=== PATIENT | female | born 1960 | race Caucasian/White ===

== ENCOUNTER → 2017-07-21 | Outpatient (CLI) | payer OTHER | LOC: MHCPAIN 13:20 | DX: G89.29 Other chronic pain (principal); M47.27 Other spondylosis with radiculopathy, lumbosacral region; M53.3 Sacrococcygeal disorders, not elsewhere classified; M96.1 Postlaminectomy syndrome, not elsewhere classified | CPT/HCPCS: G0463 ==

== ENCOUNTER → 2017-08-26 | Outpatient (CLI) | payer OTHER | LOC: MHCPAIN 15:15 | DX: G89.29 Other chronic pain (principal); M47.27 Other spondylosis with radiculopathy, lumbosacral region; M53.3 Sacrococcygeal disorders, not elsewhere classified; M96.1 Postlaminectomy syndrome, not elsewhere classified | CPT/HCPCS: G0463 ==

== ENCOUNTER → 2017-09-29 | Outpatient (CLI) | payer OTHER | LOC: MHCPAIN 14:25 | DX: G89.29 Other chronic pain (principal); M47.817 Spondylosis without myelopathy or radiculopathy, lumbosacral region; M54.16 Radiculopathy, lumbar region; M53.3 Sacrococcygeal disorders, not elsewhere classified; M96.1 Postlaminectomy syndrome, not elsewhere classified | CPT/HCPCS: G0463 ==

== ENCOUNTER → 2017-10-27 | Outpatient (CLI) | payer OTHER | LOC: MHCPAIN 15:34 | DX: G89.29 Other chronic pain (principal); M47.27 Other spondylosis with radiculopathy, lumbosacral region; M53.3 Sacrococcygeal disorders, not elsewhere classified; M96.1 Postlaminectomy syndrome, not elsewhere classified | CPT/HCPCS: G0463 ==

== ENCOUNTER → 2017-12-31 | Outpatient (CLI) | payer OTHER | LOC: MHCPAIN 15:26 | DX: G89.29 Other chronic pain (principal); M47.817 Spondylosis without myelopathy or radiculopathy, lumbosacral region; M54.16 Radiculopathy, lumbar region; M53.3 Sacrococcygeal disorders, not elsewhere classified; M96.1 Postlaminectomy syndrome, not elsewhere classified | CPT/HCPCS: G0463 ==

== ENCOUNTER → 2018-03-27 | Outpatient (CLI) | payer OTHER | LOC: COL.RAD 12:54 | DX: M51.37 Other intervertebral disc degeneration, lumbosacral region (principal); M96.1 Postlaminectomy syndrome, not elsewhere classified; Z98.1 Arthrodesis status; Z96.89 Presence of other specified functional implants ==

== ENCOUNTER → 2018-03-27 | Outpatient (CLI) | payer OTHER | LOC: MHCPAIN 12:04 | DX: G89.29 Other chronic pain (principal); M47.817 Spondylosis without myelopathy or radiculopathy, lumbosacral region; M54.16 Radiculopathy, lumbar region; M53.3 Sacrococcygeal disorders, not elsewhere classified; M96.1 Postlaminectomy syndrome, not elsewhere classified | CPT/HCPCS: G0463 ==

== ENCOUNTER → 2018-05-27 | Outpatient (CLI) | payer OTHER ==
[~2018-05-27] MED LIST: ASPIRIN E.C. 8181 MG PO; BIOTIN5000 MCG PO; BUSPAR10 MG PO; CALCIUM 600/VIT1 CAP PO; CYMBALTA 30MG30 MG PO; ELOCON 30 ML30 ML TOP; MAGNESIUM250 M1 PO; MELAT3MGTAB PO; MULTIPLE VITAMI1 CAP PO; OPANA5 MG PO; PLAQUENIL 200M200 MG PO; REQUIP2 MG PO; VITAMIN D32000 I1 PO; VOLTAREN GEL 1%1 TU TP; ZESTRIL 5MG5 MG PO; ZOLOFT 100MG100 MG PO; ZOVIRAX800 MG PO; cbd oil PO
== END ==
LOC: MHCPAIN 14:08
DX: G89.29 Other chronic pain (principal); M47.817 Spondylosis without myelopathy or radiculopathy, lumbosacral region; M54.16 Radiculopathy, lumbar region; M53.3 Sacrococcygeal disorders, not elsewhere classified; M96.1 Postlaminectomy syndrome, not elsewhere classified
CPT/HCPCS: G0463

== ENCOUNTER 2018-06-03 12:13 | Outpatient (CLI) | payer OTHER ==
[~2018-06-03] VITALS: Ht 162.6 cm; Wt 103.3 kg
[2018-06-03] VITALS (7 sets, daily range): BP systolic 110–137; BP diastolic 67–92; PULSE 76–88
[2018-06-03] MEDS ORDERED: DOXYCYCLINE 10100 MG PO (12:34)
== END 2018-06-03 15:40 | disposition home or self-care (01) ==
LOC: COL.RAD 12:13
DX: M96.1 Postlaminectomy syndrome, not elsewhere classified (principal); M51.16 Intervertebral disc disorders with radiculopathy, lumbar region; M48.061 Spinal stenosis, lumbar region without neurogenic claudication; M46.97 Unspecified inflammatory spondylopathy, lumbosacral region; Z98.1 Arthrodesis status
CPT/HCPCS: Q9965

== ENCOUNTER 2018-07-13 15:30 | Outpatient (RCR) | payer OTHER ==
[~2018-07-13 15:30] MED LIST changes: +DOXYCYCLINE 10100 MG PO
== END 2018-09-17 | disposition home or self-care (01) ==
LOC: WSPT
DX: M54.42 Lumbago with sciatica, left side (principal); M54.9 Dorsalgia, unspecified; M54.2 Cervicalgia; Z96.652 Presence of left artificial knee joint; Z98.1 Arthrodesis status

== ENCOUNTER → 2018-08-25 | Outpatient (CLI) | payer OTHER | LOC: MHCPAIN 14:58 | DX: G89.29 Other chronic pain (principal); M47.817 Spondylosis without myelopathy or radiculopathy, lumbosacral region; M54.16 Radiculopathy, lumbar region; M53.3 Sacrococcygeal disorders, not elsewhere classified; M96.1 Postlaminectomy syndrome, not elsewhere classified; M47.814 Spondylosis without myelopathy or radiculopathy, thoracic region | CPT/HCPCS: G0463 ==

== ENCOUNTER → 2018-11-24 | Outpatient (CLI) | payer OTHER | LOC: MHCPAIN 15:39 | DX: G89.29 Other chronic pain (principal); M47.817 Spondylosis without myelopathy or radiculopathy, lumbosacral region; M54.16 Radiculopathy, lumbar region; M53.3 Sacrococcygeal disorders, not elsewhere classified; M96.1 Postlaminectomy syndrome, not elsewhere classified | CPT/HCPCS: G0463 ==